=== PATIENT | female | born 1980 | race Caucasian/White ===

== ENCOUNTER 2017-02-28 16:40 | Emergency (ER) | payer OTHER ==
--- NOTE | 2017-02-28 18:11 | ED ORDER SUMMARY ---
..... Patient: RAH AZEVEDO OrderSheet [facility] VisitID: [id number] [place] [address] 36y, F Registration Date/Time: 02/28/2017 ORDER SHEET Weight: 120.6 kg Allergies: Penicillin, Codeine, Cortisone, Macrobid, Morphine and Related, Penicillins, Sulfa Antibiotics, Toradol GENERAL ORDERS: CBC w Diff Urgent (17:11 02/28/2017 EKoroleva P.A.-C) (Ack 17:14 LMuller) (17:28 CHernandez R.N.) CMP Urgent (17:02/28/2017 EKoroleva P.A.-C) (Ack 17:14 LMuller) (17:28 CHernandez R.N.) Urine Urgent (17:02/28/2017 EKoroleva P.A.-C) (Ack 17:14 LMuller) (17:28 CHernandez R.N.) US Pelvic Complete w Transvag Urgent (17:15 02/28/2017 EKoroleva P.A.-C) (Ack 17:22 LMuller) (17:28 CHernandez R.N.) (Cancelled: Patient [id number]:15 LMuller) Pelvic Exam Setup (17:15 02/28/2017 EKoroleva P.A.-C) (17:28 CHernandez R.N.) MEDICATION ORDERS: IV FLUIDS: IV NS : initial bolus 1000 mL (1000 mL/hr), then 1000 mL/hr for X1 (NOW); Cody (17:11 02/28/2017 EKoroleva P.A.-C) (Ack 17:28 CHernandez R.N.) (Cancelled: Patient Left18:34 CHernandez R.N.) ORDER SHEET NOTES: [Electronically signed by Jay Mejia R.N. (18:34 02/28/2017)] [Electronically signed by Lima Woody PMaria TeresaA.-C (23:36 02/28/2017)] [Electronically locked/signed by Jay Mejia R.N. (18:34 02/28/2017)]
--- NOTE | 2017-02-28 18:11 | ED NURSING NOTES ---
Clinical Report - Nurs[facility] [place] [address] 02/28/2017 16:41 Patient: RAH AZEVEDO TRIAGE Triage time 16:58. Acuity: LEVEL 3. Chief Complaint: ABDOMINAL PAIN and VAGINAL BLEEDING. --17:07 Jay Mejia R.N. 16:58 02/28/17. BP: 161/104. HR: 94. RR: 18. O2 saturation: 98%. Temp: 97.7 F. --17:07 Jay Mejia R.N. Weight: 120.6 kg. Height/Length: 69 inches. BMI: 39.3. --17:04 Jay Mejia R.N. Medications Gabapentin (PHN) Oral. Methadone HCl Oral. --17:01 Jay Mejia R.N. Medication/allergy information source: the patient. --17:07 Jay Mejia R.N. Allergies Penicillin. --17:01 Jay Mejia R.N. Codeine. Cortisone. Macrobid. Morphine and Related. Penicillins. Sulfa Antibiotics. Toradol. --17:01 Jay Mejia R.N. History Arrived by private vehicle. Historian: patient. Accompanied by spouse. ( Abdominal pain from belly button to lower abdomen with nausea and vomiting. Vaginal bleed with clots started yesterday morning.). This started yesterday. She has had nausea (1 days ago). She has had vomiting (today). She has had cramping, colicky, constant abdominal pain (2 days). The pain is described as generalized and located in the lower abdomen and associated with nausea and vomiting. Last oral intake by patient was 1 hour ago. 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 PAST MEDICAL HX: Immunizations: up-to-date. SURGERY HX: Dilatation & Curettage. SOCIAL HX: Light tobacco smoker (cigarette)- less than 1/2 a pack per day. --17:07 Jay Mejia R.N. Interventions ID and allergy band on patient. To room. --17:07 Jay Mejia R.N. PHYSICAL ASSESSMENT Ambulatory to room. GENERAL / NEURO / PSYCH: Alert. Oriented X 4. Appears in no acute distress. HEENT: Mucous membranes are pink. RESPIRATORY: Respirations not labored. Breath sounds within normal limits. CVS: Capillary refill less than 2 seconds. GI / : The patient has had nausea. Severe obesity. Abdominal tenderness in the lower abdomen. Bowel sounds within normal limits. A moderate amount of bloody vaginal discharge present. SKIN: Skin is warm. Skin is slightly diaphoretic. --17:09 Jay Mejia R.N. NURSING PROGRESS NOTES Reassurance given. Patient identifiers checked. Side rails up x 1. Bed placed in lowest position. Brakes of bed on. Patient ready for evaluation- PA notified. --17:09 Jay Mejia R.N. ( Set up for the pelvic done and noted pt to be agitated and upset when asked pt expressed " I don't like her (meaning Koroleva) I do not trust her, I have seen her before and don't appreciate the attitude" ANNA Woody had no attitude, very respectfully she was trying to explain process of doing and US post pelvic exam and the need for US to look at the inside of pelvis. Pt refusing to look or speak to Annalise "I will deal with you not her, feel like you are double jeopardy me" No reason noted for attitude and disrespect from pt to ANNA Woody. Pt now refusing US and wanting to leave with out further treatment. ROMULO Thompson updated to situation.). --18:22 Ellie Rojas R.N. DISPOSITION / DISCHARGE Condition at departure: stable. No learning barriers present. Discharge instructions provided and reviewed with the patient and spouse. Patient verbalized understanding. Written instructions provided in Polish. ( patient signed AMA form). The patient left the Emergency Department against medical advice. The patient appears to be alert, oriented x4 and coherent. She stated is leaving the ED due to personal reasons. Notified the ED physician and charge nurse of patient departure. Prior to leaving the ED, she was advised to stay for completion of treatment and return if needed. She was informed of the risks of leaving and verbalized understanding of these risks. Patient signed form prior to leaving. She left the Emergency Department ambulatory and via private vehicle. --18:32 Jay Mejia R.N. 18:30 02/28/17. BP: 160/99. HR: 89. RR: 18. O2 saturation: 99%. Temp: deferred. Pain level now: 10. --18:32 Jay Mejia R.N. Departure time: 18:33. --18:33 Jay Mejia R.N. Locked/Released at 02/28/2017 18:34 by Jay Mejia R.N.
--- NOTE | 2017-02-28 18:11 | ED ORDER SUMMARY ---
..... Patient: RAH AZEVEDO OrderSheet [facility] VisitID: [id number] [place] [address] 36y, F Registration Date/Time: 02/28/2017 ORDER SHEET Weight: 120.6 kg Allergies: Penicillin, Codeine, Cortisone, Macrobid, Morphine and Related, Penicillins, Sulfa Antibiotics, Toradol GENERAL ORDERS: CBC w Diff Urgent (17:11 02/28/2017 EKoroleva P.A.-C) (Ack 17:14 LMuller) (17:28 CHernandez R.N.) CMP Urgent (17:02/28/2017 EKoroleva P.A.-C) (Ack 17:14 LMuller) (17:28 CHernandez R.N.) Urine Urgent (17:02/28/2017 EKoroleva P.A.-C) (Ack 17:14 LMuller) (17:28 CHernandez R.N.) US Pelvic Complete w Transvag Urgent (17:15 02/28/2017 EKoroleva P.A.-C) (Ack 17:22 LMuller) (17:28 CHernandez R.N.) (Cancelled: Patient [id number]:15 LMuller) Pelvic Exam Setup (17:15 02/28/2017 EKoroleva P.A.-C) (17:28 CHernandez R.N.) MEDICATION ORDERS: IV FLUIDS: IV NS : initial bolus 1000 mL (1000 mL/hr), then 1000 mL/hr for X1 (NOW); Cody (17:11 02/28/2017 EKoroleva P.A.-C) (Ack 17:28 CHernandez R.N.) (Cancelled: Patient Left18:34 CHernandez R.N.) ORDER SHEET NOTES: [Electronically signed by Jay Mejia R.N. (18:34 02/28/2017)] [Electronically signed by Lima Woody PMaria TeresaA.-C (23:36 02/28/2017)] [Electronically locked/signed by Jay Mejia R.N. (18:34 02/28/2017)]
--- NOTE | 2017-02-28 18:11 | ED CLINICAL REPORT ---
Clinical Report - Physicians/Mid Levels [facility] [address] [place] [address] 02/28/2017 16:41 Patient: RAH AZEVEDO Time Seen: 17:18 Feb 28 2017. Arrived- By private vehicle. Historian- patient (SO). HISTORY OF PRESENT ILLNESS Chief Complaint: VAGINAL BLEEDING. This started yesterday and still present. The symptoms are described as mild. The patient has had pelvic pain. No irregular periods, vaginal discharge, pain with urination or urinary frequency. (Patient reports vaginal bleeding over the last 2 days, normal timeframe for her menses, the bleeding has been worsening increasing in the heavy nature of such over the last 6 months. Patient is 9 months or so , with complications and hemorrhage. Patient reports she can easily go through 36 pounds over a span of 4 days. As mentioned menses have been worsening over the last 6 months. 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 REVIEW OF SYSTEMS No vomiting, skin rash or enlarged lymph nodes. All systems otherwise negative, except as recorded above. PAST HISTORY Problems: Dental Caries. Dental Pain. Dental Abscess. Problems. Hypertension. Vasovagal Syncope. Chest Pain. Cough. OB History. Threatened . Headache. Lifestyle / Substance Problems. Care. Abdominal Pain. Tetanus Status. . Pyelonephritis. Immunizations. Vomiting. UTI - Urinary Tract Infection. LNMP - Last Normal Menstrual Period. Cystitis. Additional Surgeries: Ankle Right. Bladder Suspension. Cystoscopy. Dilatation & Curettage. Lithotripsy. Renal Stone Manipulation. Medications: Gabapentin (PHN) Oral. Methadone HCl Oral. Allergies: Codeine. Cortisone. Macrobid. Morphine and Related. Penicillin. Penicillins. Sulfa Antibiotics. Toradol. SOCIAL HISTORY Smoker- current status unknown. PHYSICAL EXAM Appearance: Alert. Appears to be in pain. Patient in mild distress. Neck: Neck supple. CVS: Heart sounds normal. Respiratory: No respiratory distress. Breath sounds normal. Abdomen: Soft and nontender. No mass. No abdominal tenderness. Back: Normal external inspection. No CVA tenderness. : Speculum exam normal. Bimanual exam normal. (mild central tendernss/ uterine, no pain out of prportion to exam/ no adnexa tenderness, no cmt, chaperoned exam with Ellie.). Skin: Skin warm. Neuro: Oriented X 3. LABS, X-RAYS, AND EKG Laboratory Tests: Urine: (SACHA: 02/28/2017 18:00) ( MsgRcvd 02/28/2017 18:05) Final results Test Result Flag Units (Reference) URINE NEGATIVE CBC w Diff: (SACHA: 02/28/2017 17:45) ( MsgRcvd 02/28/2017 17:50) Final results Test Result Flag Units (Reference) WHITE BLOOD COUNT 9.8 K/uL (4.5-11.5) RED BLOOD COUNT 5.16 M/uL (4.00-5.20) HEMOGLOBIN 13.6 gm/dL (12.0-16.0) HEMATOCRIT 41.4 % (36.0-46.0) MEAN CELL VOLUME 80 fL (80-100) MEAN CORPUSCULAR HGB 26 pg (26-34) MEAN CORPUSCULAR HGB CONC 33 g/dL (31-37) RED CELL DISTRIBUTION WIDTH 14.1 % (11.6-14.8) PLATELET COUNT 167 K/uL (150-400) NEUTROPHIL % 72.1 % (50-75) LYMPH % 20.2 L % (25-40) MONO % 6.1 % (3-14) EOSINOPHIL % 1.3 % (0-4) BASOPHIL % 0.3 % (0-2) CMP: (SACHA: 02/28/2017 17:45) ( MsgRcvd 02/28/2017 18:33) Final results Test Result Flag Units (Reference) GLUCOSE 94 mg/dL (70-110) BUN 9 mg/dL (7-18) CREATININE 0.7 mg/dL (0.6-1.3) Estimated GFR >60 mL/min Estimated GFR- >60 mL/min Note: Persistent reduction over 3 months in eGFR<60 mL/min/1.73 m2 defines CKD. Patients with eGFR values>=60 mL/min/1.73 m2 may also have CKD if evidence ofpersistent proteinuria. Additional information may be foundat www.kidney.org. SODIUM 143 mmol/L (136-145) POTASSIUM 3.5 mmol/L (3.5-5.1) CHLORIDE 104 mmol/L (98-107) CARBON DIOXIDE 29 mmol/L (21-32) CALCIUM 9.0 mg/dL (8.5-10.1) TOTAL PROTEIN 8.1 g/dL (6.4-8.2) ALBUMIN 4.3 g/dL (3.3-5.0) BILIRUBIN, TOTAL 0.4 mg/dL (0.0-1.0) ALKALINE PHOSPHATASE 124 H U/L (46-116) AST (SGOT) 16 U/L (15-37) ALT (SGPT) 37 U/L (12-78) . PROGRESS AND PROCEDURES Course of Care: Patient is adamant that she will require anesthesia to place a IV in her neck if any will be required. Lab DRAW COMPLETED H&H is stable. Patient with normal cardiac. Pelvic exam completed with minor pain on the central aspect. Patient with vaginal bleeding from the cervix. No adnexal tenderness left or right-sided nature, no large masses palpated. At this time I informed the patient that ultrasound was outside the door, and would be with her shortly Patient then adamantly decided that she did not want an ultrasound, as she is confused to why the exams did not proceed each other and Y both exams are necessary. Attempt explained to the patient that one exam primarily the bimanual and speculum exam looks at external aspects of the cervix and identification of the bleeding and location of pain, an ultrasound gives us a better indicator of any possible abnormalities. Patient adamantly does not wish for any of this and wishes to leave. At this time she is signing AMA Non female with dysmenorrhea, Worsening over the last 6 months. Cannot exclude any acute causes as she this time does not wish for an ultrasound and wishes to go home. No signs of acutely. H/H stable. 02/28/2017 18:30 BP: 160/99. HR: 89. RR: 18. O2 saturation: 99%. Pain level now: 5/10. Patient is stable. Patient/family counseled. Disposition: Discharged. CLINICAL IMPRESSION Menorrhagia and dysfunctional uterine bleeding. INSTRUCTIONS Warnings: Further evaluation is necessary. (Electronically signed by Lima Woody P.A.-C 02/28/2017 23:36)
--- NOTE | 2017-02-28 18:11 | ED NURSING NOTES ---
Clinical Report - Nurses [facility] [place] [address] 02/28/2017 16:41 Patient: RAH AZEVEDO TRIAGE Triage time 16:58. Acuity: LEVEL 3. Chief Complaint: ABDOMINAL PAIN and VAGINAL BLEEDING. --17:07 Jay Mejia R.N. 16:58 02/28/17. BP: 161/104. HR: 94. RR: 18. O2 saturation: 98%. Temp: 97.7 F. --17:07 Jay Mejia R.N. Weight: 120.6 kg. Height/Length: 69 inches. BMI: 39.3. --17:04 Jay eMjia R.N. Medications Gabapentin (PHN) Oral. Methadone HCl Oral. --17:01 Jay Mejia R.N. Medication/allergy information source: the patient. --17:07 Jay Mejia R.N. Allergies Penicillin. --17:01 Jay Mejia R.N. Codeine. Cortisone. Macrobid. Morphine and Related. Penicillins. Sulfa Antibiotics. Toradol. --17:01 Jay Mejia R.N. History Arrived by private vehicle. Historian: patient. Accompanied by spouse. ( Abdominal pain from belly button to lower abdomen with nausea and vomiting. Vaginal bleed with clots started yesterday morning.). This started yesterday. She has had nausea (1 days ago). She has had vomiting (today). She has had cramping, colicky, constant abdominal pain (2 days). The pain is described as generalized and located in the lower abdomen and associated with nausea and vomiting. Last oral intake by patient was 1 hour ago. 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 PAST MEDICAL HX: Immunizations: up-to-date. SURGERY HX: Dilatation & Curettage. SOCIAL HX: Light tobacco smoker (cigarette)- less than 1/2 a pack per day. --17:07 Jay Mejia R.N. Interventions ID and allergy band on patient. To room. --17:07 Jay Mejia R.N. PHYSICAL ASSESSMENT Ambulatory to room. GENERAL / NEURO / PSYCH: Alert. Oriented X 4. Appears in no acute distress. HEENT: Mucous membranes are pink. RESPIRATORY: Respirations not labored. Breath sounds within normal limits. CVS: Capillary refill less than 2 seconds. GI / : The patient has had nausea. Severe obesity. Abdominal tenderness in the lower abdomen. Bowel sounds within normal limits. A moderate amount of bloody vaginal discharge present. SKIN: Skin is warm. Skin is slightly diaphoretic. --17:09 Jay Mejia R.N. NURSING PROGRESS NOTES Reassurance given. Patient identifiers checked. Side rails up x 1. Bed placed in lowest position. Brakes of bed on. Patient ready for evaluation- PA notified. --17:09 Jay Mejia R.N. ( Set up for the pelvic done and noted pt to be agitated and upset when asked pt expressed " I don't like her (meaning Koroleva) I do not trust her, I have seen her before and don't appreciate the attitude" ANNA Woody had no attitude, very respectfully she was trying to explain process of doing and US post pelvic exam and the need for US to look at the inside of pelvis. Pt refusing to look or speak to Annalise "I will deal with you not her, feel like you are double jeopardy me" No reason noted for attitude and disrespect from pt to ANNA Woody. Pt now refusing US and wanting to leave with out further treatment. ROMULO Thompson updated to situation.). --18:22 Ellie Rojas R.N. DISPOSITION / DISCHARGE Condition at departure: stable. No learning barriers present. Discharge instructions provided and reviewed with the patient and spouse. Patient verbalized understanding. Written instructions provided in Trinidadian. ( patient signed AMA form). The patient left the Emergency Department against medical advice. The patient appears to be alert, oriented x4 and coherent. She stated is leaving the ED due to personal reasons. Notified the ED physician and charge nurse of patient departure. Prior to leaving the ED, she was advised to stay for completion of treatment and return if needed. She was informed of the risks of leaving and verbalized understanding of these risks. Patient signed form prior to leaving. She left the Emergency Department ambulatory and via private vehicle. --18:32 Jay Mejia R.N. 18:30 02/28/17. BP: 160/99. HR: 89. RR: 18. O2 saturation: 99%. Temp: deferred. Pain level now: 10. --18:32 Jay Mejia R.N. Departure time: 18:33. --18:33 Jay Mejia R.N. Locked/Released at 02/28/2017 18:34 by Jay Mejia R.N.
--- NOTE | 2017-02-28 23:36 | ED MED RECONCILIATION SUMMARY ---
Patient: RAH AZEVEDO Medication Reconciliation Report [facility] VisitID: [id number] [address] [place] [address] 36y, F Registration Date/Time: 02/28/2017 Weight: 120.6 kg Height/Length: 69 in. BMI: 39.3 ALLERGIES: Codeine, Cortisone, Macrobid, Morphine and Related, Penicillin, Penicillins, Sulfa Antibiotics, Toradol The patient's Home Medications are listed below: THE FOLLOWING MEDICATIONS NEED TO BE RECONCILED: Gabapentin (PHN) Oral Methadone HCl Oral The source(s) of the original Home Medication information: patient The following Medications were given to the patient in the Emergency Department: None. The following Medications were prescribed to the patient: None.
--- NOTE | 2017-02-28 23:36 | ED DISCHARGE INSTRUCTIONS ---
Patient: RAH AZEVEDO General Instructions [facility] VisitID: [id number] [place] [address] 36y, F Registration Date/Time: 02/28/2017 Menorrhagia and dysfunctional uterine bleeding. INSTRUCTIONS Warnings: Further evaluation is necessary. ADDITIONAL INFORMATION Painful Menstrual Periods The uterus is a muscle and contracts normally during the menstrual cycle. The contraction pushes out the build-up of tissue that occurs each month inside the uterus. If the contraction is very strong, it can cause pain because the muscle is not getting enough oxygen for the amount of work it is doing. Pain with menstruation is called dysmenorrhea. The pain may feel like a dull ache or throbbing in the lower abdomen. It may spread to your lower back or inner thighs. In severe cases there may also be nausea, vomiting, loose stools, sweating or dizziness. There are two types of dysmenorrhea: Primary Dysmenorrhea (common menstrual cramps) usually appears within one or two years after you start your periods. It usually gets better or goes away as you get older or when you have a baby. The menstrual cramps usually start just before, or on the day of your period, and last 1-3 days. Treatment is with comfort measures and anti-inflammatory drugs as described below (see Home Care). If your pain is not controlled with these measures, your doctor may prescribe control pills. This will reduce the pain of each period. Secondary Dysmenorrhea starts later in life. The pain begins earlier in the menstrual cycle and lasts longer than common menstrual cramps. It is caused by a specific problem with the pelvic organs, such as: PID (pelvic inflammatory disease) -- an infection in the fallopian tubes Fibroids benign tumors within the wall of the uterus (not cancer) Endometriosis the tissue that lines the uterus spreads outside the uterus and grows there. This tissue swells and bleeds each month, just like the tissue in your uterus, and causes pain. IUD use -- especially in the first few months after placement Once the cause of secondary dysmenorrhea is found, it can be treated. Home Care: Most women with common menstrual cramping (primary dysmenorrhea) can remain active throughout their period. Many women find that regular exercise each werek reduces menstrual pain. If cramping is severe, rest in bed with a heating pad on the lower abdomen or lower back. A hot bath or massage to the lower back and abdomen may also give relief. Smoking can make symptoms worse. If you smoke, ask your doctor for help with a stop-smoking plan. Avoid caffeine and alcohol around the time of your period since these can make symptoms worse. Anti-inflammatory medicine such as aspirin, ibuprofen (Advil, Motrin) or naproxen (Aleve, Naprosyn) can be very helpful, especially if taken at the very first signs of bleeding or cramping . Acetaminophen (Tylenol) is not as effective for this problem. [NOTE: If you have chronic liver or kidney disease or ever had a stomach ulcer or GI bleeding, talk with your doctor before using these medicines.] If your pain is not controlled by the above measures, a prescription pain medicine may be required for a short time. Discuss this with your doctor. Follow Up with your doctor as advised. If you have just started menstruating in the past 1-2 years, and your pain is mild to moderate, your symptoms are most likely not a cause for concern. However, if menstrual cramps are severe enough to interfere with your daily activities, last longer than a few days, or if you are older and just started having menstrual pain, it is important to see your doctor for further evaluation. Get Prompt Medical Attention if any of the following occur: Fever over 100.4F (38.0C) with pelvic pain Uncontrolled menstrual pain or pain that lasts longer than usual or occurs between periods Unusual vaginal discharge between periods Heavy vaginal bleeding (soaking more than one pad an hour for three hours) Passage of pink or bhat tissue from the vagina If you use tampons, watch for the following signs of Toxic Shock Syndrome and return at once: Fever over 102.0F (38.9C), with or without pelvic pain Vomiting, diarrhea Dizziness, weakness or fainting Rash that looks like a bad sunburn Heavy Menstrual Bleeding In this condition (also called "menorrhagia"), the menstrual periods are heavier or longer than usual. You may pass large, dark clots. If you have frequent, heavy periods, you may become anemic (low blood count). Severe anemia may cause you to look pale and feel weak or fatigued. You might become short of breath with minimal exertion. Heavy or prolonged bleeding may be due to female hormones being out of balance. Other causes include pelvic infection, benign fibroid tumors, use of an IUD or low thyroid function. It may occur in girls soon after they start to have their periods. Older women close to the age of menopause may also have this type of bleeding. If heavy bleeding does not stop, further evaluation will be needed to find out the exact cause. Home Care: If you tire easily, get plenty of rest. Avoid heavy exertion. Do not take aspirin-containing products and anti-inflammatory medicines like ibuprofen (Advil, Motrin), which thin the blood and may cause more bleeding. You may take acetaminophen (Tylenol) for pain unless another pain medicine was prescribed. If iron was prescribed for anemia, it will take about 4-6 weeks to rebuild your blood and correct the anemia. Take the iron as directed. If hormones were prescribed to control your bleeding, take them just as instructed. If you stop too soon or miss doses, the bleeding may begin again. If you were prescribed a medicine called Provera (medroxyprogesterone), the bleeding should stop while you are taking it. Another period will start a few days after you finish the medicine. Follow Up: You should see your doctor within the next 1-2 days if your bleeding does not begin to improve. Otherwise, schedule an appointment within the next 1-2 weeks. Get Prompt Medical Attention if any of the following occur: Heavier bleeding (soaking one pad an hour for three hours) Heavy bleeding for more than one week Fever of 100.4F (38C) or higher, or as directed by your healthcare provider Increase in abdominal pain Feeling weak or dizzy, fainting You have been given the following additional information: Dysmenorrhea Menorrhagia (Electronically signed by Lima Woody P.A.-C 02/28/2017 23:36)
--- NOTE | 2017-02-28 23:36 | ED MAR SUMMARY ---
..... Medication Administration Record [facility] [address] [place], [place] [id number] Patient: RAH AZEVEDO Visit ID: [id number] 36y, F Weight: 120.6 kg Height/Length: 69 in BMI: 39.3 ALLERGIES: Codeine, Cortisone, Macrobid, Morphine and Related, Penicillins, Sulfa Antibiotics, Toradol, Penicillin
--- NOTE | 2017-02-28 23:36 | ED MAR SUMMARY ---
..... Medication Administration Record [facility] [address] [place], [place] [id number] Patient: RAH AZEVEDO Visit ID: [id number] 36y, F Weight: 120.6 kg Height/Length: 69 in BMI: 39.3 ALLERGIES: Codeine, Cortisone, Macrobid, Morphine and Related, Penicillins, Sulfa Antibiotics, Toradol, Penicillin
--- NOTE | 2017-02-28 23:36 | ED MED RECONCILIATION SUMMARY ---
Patient: RAH AZEVEDO Medication Reconciliation Report [facility] VisitID: [id number] [address] [place] [address] 36y, F Registration Date/Time: 02/28/2017 Weight: 120.6 kg Height/Length: 69 in. BMI: 39.3 ALLERGIES: Codeine, Cortisone, Macrobid, Morphine and Related, Penicillin, Penicillins, Sulfa Antibiotics, Toradol The patient's Home Medications are listed below: THE FOLLOWING MEDICATIONS NEED TO BE RECONCILED: Gabapentin (PHN) Oral Methadone HCl Oral The source(s) of the original Home Medication information: patient The following Medications were given to the patient in the Emergency Department: None. The following Medications were prescribed to the patient: None.
== END 2017-02-28 18:31 | disposition left against medical advice (07) ==
LOC: ED SRH 16:40
DX: N92.0 Excessive and frequent menstruation with regular cycle (principal); N93.8 Other specified abnormal uterine and vaginal bleeding; Z79.899 Other long term (current) drug therapy; Z79.891 Long term (current) use of opiate analgesic; Z88.0 Allergy status to penicillin; Z88.1 Allergy status to other antibiotic agents; Z88.2 Allergy status to sulfonamides; Z88.5 Allergy status to narcotic agent; Z88.8 Allergy status to other drugs, medicaments and biological substances
CPT/HCPCS: 90100; 93070; 95059